=== PATIENT | male | born 1950 | race African-American/Black ===

== ENCOUNTER 2017-03-11 19:26 | Emergency (ER) | payer SELFPAY ==
[~2017-03-11] VITALS: Ht 175.3 cm; Wt 67.0 kg
[~2017-03-11 19:26] MED LIST: ATEN50TA PO; INSU100V23; NIFE10CA19 PO; NIFE30TA66
[2017-03-11 19:28] VITALS: Ht 175.3 cm; Wt 67.0 kg
--- NOTE | 2017-03-11 20:32 | ERD ---
ER Documentation Chief Complaint Date/Time DATE: 03/11/17 TIME: 20:31 Chief Complaint COUGH , RUNNY NOSE X 1 WEEK HPI 66-year-old male presents to emergency department for complaints of cough runny nose nasal congestion for 1 week. Patient has been having dry cough, does not cough up any phlegm or blood. Patient does not have any shortness of breath or wheezing. Patient does not have any fever or chills. Patient does not have any chest or palpitations. Patient does not have any dizziness. Patient did not take any medications up with symptoms. ROS All systems reviewed and are negative except as per history of present illness. Medications Home Meds Reported Medications Nifedipine* (Procardia*) 10 Mg Capsule, 10 MG PO 01/30/13 Insulin Regular, Human* (Novolin R*) 100 U/Ml Vial 08/09/12 Atenolol* (Atenolol*) 50 Mg Tablet, 50 MG PO DAILY 03/29/12 Nifedipine* (Procardia XL*) 30 Mg/Bottle Tab.osm.24, BID 10/22/11 Allergies Allergies: Coded Allergies: No Known Drug Allergies (Verified Allergy, 02/01/13) PMhx/Soc History of Surgery: Yes Hx Neurological Disorder: No Hx Respiratory Disorders: No Hx Cardiac Disorders: Yes Hx Psychiatric Problems: No Hx Miscellaneous Medical Probl: No Hx Alcohol Use: No Hx Substance Use: No Hx Tobacco Use: Yes Smoking Status: Light tobacco smoker FmHx Family History: No coronary disease, No diabetes, No other Physical Exam Vitals Vital Signs Date Time Temp Pulse Resp B/P Pulse Ox O2 Delivery O2 Flow Rate FiO2 03/11/17 19:28 98.5 90 18 183/88 97 Physical Exam GENERAL: The patient is well developed and appropriate for usual state of health, in no apparent distress. HEENT: Atraumatic. Ears: Normal tympanic membrane, no erythema or bulging. No ear canal swelling. No ear discharge. Nose: Erythematous nasal turbinates with clear nasal discharge. Throat: oropharynx erythematous with postnasal drip. No tonsillar swelling or tonsillar exudates. No lymphadenopathy. CHEST: Clear to auscultation bilaterally. There are no rales, wheezes or rhonchi. HEART: Regular rate and rhythm. No murmurs, clicks, rubs or gallops. No S3 or S4. ABDOMEN: Soft, nontender and nondistended. Good bowel sounds. No rebound or guarding. No gross peritonitis. No gross organomegaly or masses. No Forbes sign or McBurney point tenderness. BACK: No midline or flank tenderness. EXTREMITIES: Equal pulses bilaterally. There is no peripheral clubbing, cyanosis or edema. No focal swelling or erythema. Full range of motion. Grossly neurovascularly intact. NEURO: Alert and oriented. Cranial nerves 2-12 intact. Motor strength in all 4 extremities with 5/5 strength. Sensation grossly intact. Normal speech and gait. SKIN: There is no apparent rash or petechia. The skin is warm and dry. HEMATOLOGIC AND LYMPHATIC: There is no evidence of excessive bruising or lymphedema. No gross cervical, axillary, or inguinal lymphadenopathy. Procedures/MDM Medical Decision Making: Patient symptoms are most likely consistent with acute bronchitis most likely caused by viral in origin. There is low suspicion for Pneumonia at this time since patients lungs sounds are clear, patient O2 saturation is normal and patient doesnt show any respiratory distress. I ordered for a chest x-ray to be done, but patient eloped prior to having this done. There is low suspicion for other cardiopulmonary emergencies at this time such as CHF, Pulmonary Embolism, Pneumothorax, Aortic Aneurysm or any other cardiopulmonary emergencies at this time. There is low suspicion for sepsis. Patient appears well and is hemodynamically stable. Patient does not have any fever. Disposition: Eloped. Patient was contacted, and able to contact the patient. Patient was stable prior to eloping from Departure Diagnosis: Primary Impression: Acute bronchitis Condition: Stable Additional Instructions: Patient is advised to take medications as prescribed. Patient is advised to rest. Patient advised to increase fluid intake, do humidifier at home and if possible, do salt water gargles. Patient is advised that if symptoms are worse, shortness of breath, uncontrolled fever, stridor, vomiting, worst signs and symptoms to return to emergency department immediately. Otherwise, patient is advised to follow up with primary doctor in 5-7 days. DREW VALENTINO NP Mar 11, 2017 20:32 DREW VALENTINO NP Mar 11, 2017 20:32
== END 2017-03-11 23:42 | disposition left against medical advice (07) ==
LOC: FTE 19:26
DX: J20.9 Acute bronchitis, unspecified (principal); F17.210 Nicotine dependence, cigarettes, uncomplicated; Z79.4 Long term (current) use of insulin
CPT/HCPCS: 99282

== ENCOUNTER 2018-07-04 18:19 | Inpatient (IN) | END 2018-07-08 18:10 | disposition home or self-care (01) | DRG 305 ==